=== PATIENT | female | born 1965 | race African-American/Black ===

== ENCOUNTER 2025-04-25 13:09 | Outpatient (REF) | payer OTHER, SELFPAY ==
--- NOTE | ~2025-04-25 | XR_ITS ---
EXAMINATION: XR KNEE, RIGHT CLINICAL INFORMATION: M25.561 - Pain in right knee COMPARISON: None available. TECHNIQUE: Three views of the right knee. FINDINGS: There is moderate narrowing of the medial joint space with medial joint line marginal osteophytes. There is a joint effusion. No other abnormalities are evident. XR/XR knee RT 3V IMPRESSION: Moderate osteoarthritis. Electronically signed by: Asaf Devine MD 04/25/2025 01:34 PM EDT
== END 2025-04-25 13:10 | disposition home or self-care (01) ==
LOC: HO.HOSX 13:09
PROVIDERS: PCP Internal Medicine; Visit Provider Orthopaedic Surgery
DX: M17.11 Unilateral primary osteoarthritis, right knee (principal); Z96.652 Presence of left artificial knee joint
CPT/HCPCS: 73562

== ENCOUNTER 2025-04-25 13:09 | Outpatient (AMB) | payer OTHER, SELFPAY ==
--- NOTE | 2025-04-25 13:35 | MHC.OFFVIS ---
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 The patient did undergo left total knee replacement surgery by Dr. Wu in 2019. She reports mild intermittent discomfort in her left knee. She describes her right knee pain as sharp and severe in nature. Her right knee pain has gotten worse over the last few years in spite of continued non operative treatments. She has had cortisone injections in the past which gave her no relief. She has also had viscosupplementation injections which gave her fairly good relief. She has failed the last 3 months of conservative treatment which has included Tylenol, ibuprofen, physical therapy exercises and a home exercise program. She wishes to hold off on right total knee replacement surgery for as long as possible. At this point her right knee pain is interfering with her activities of daily living and her ability to sleep well through the night. Allergies grape (GRAPE) Allergy (Severe, Verified 04/25/25 13:43) ANAPHYLAXIS oxycodone (OXYCODONE) Allergy (Severe, Verified 04/25/25 13:43) LIPS/FACE SWELLING peanut (PEANUT) Allergy (Severe, Verified 04/25/25 13:43) ANAPHYLAXIS pineapple (PINEAPPLE) Allergy (Severe, Verified 04/25/25 13:43) ANAPHYLAXIS amoxicillin (AMOXICILLIN) Allergy (Intermediate, Verified 04/25/25 13:43) LIP/FACE SWELLING metronidazole (From FLAGYL) Allergy (Intermediate, Verified 04/25/25 13:43) LIP/FACE SWELLING morphine (MORPHINE) Allergy (Intermediate, Verified 04/25/25 13:43) LIP/FACE SWELLING Sulfa (Sulfonamide Antibiotics) (SULFA (SULFONAMIDE ANTIBIOTICS)) Allergy (Intermediate, Verified 04/25/25 13:43) LIP/FACE SWELLING acetaminophen (Percocet) Allergy (Unknown, Verified 04/25/25 13:43) Unknown sulfur Allergy (Unknown, Verified 04/25/25 13:43) Unknown Medication List - Last Reconciled 04/25/25 by Kush Schofield MD clindamycin HCl 300 mg PO ONCE 1 day Physical Exam Vital Signs: BMI result Body Mass Index 36.0 Const Other: Well-nourished well-developed very friendly female awake alert and oriented x3 in no acute distress Extrem Other: Right knee examination shows a minimal effusion, palpable crepitus with range of motion, pain with range of motion, no instability Results Reviewed Results Reviewed: X-rays of the patient's right knee show moderate diffuse joint space narrowing, subchondral sclerosis, no acute bony abnormalities Assessment & Plan Assessment & Plan (1) Osteoarthritis of right knee: Code(s): M17.11 - Unilateral primary osteoarthritis, right knee Category: Medical Plan Ms. Mayes presents with right knee pain due to osteoarthritis. I had a lengthy discussion with the patient regarding the treatment options. She wishes to hold off on total knee replacement surgery for as long as possible. I agree with this plan. I will see if the patient's insurance company will cover a viscosupplementation injection, such as Durolane, for her right knee. I will see her back once the injection is approved. Feel free to call me at any time should questions regarding her orthopedic management arise. Thank you very much for asking me to see this very friendly patient. I spent 21 minutes in reviewing the patient's records and imaging studies, seeing the patient and documenting in the medical record. Orders: Orders XR knee RT 3V Today M25.561 - Pain in right knee Medications: New diclofenac sodium 75 mg PO Q12H PRN 60 tabs 2RF pain Coding Level of Care Code Est Pt Level 3 (03867) Complex EM visit Add On G2211 Diagnoses Osteoarthritis of right knee M17.11
[2025-04-25 13:42] VITALS: BMI 36.0
== END 2025-04-25 14:02 | disposition home or self-care (01) ==
LOC: HO.HOS 13:10
PROVIDERS: PCP Internal Medicine; Visit Provider Orthopaedic Surgery
DX: M17.11 Unilateral primary osteoarthritis, right knee (principal)
CPT/HCPCS: 99213; G2211

== ENCOUNTER → 2025-04-25 13:21 | Outpatient (BNV) | payer OTHER, SELFPAY | PROVIDERS: PCP Internal Medicine; Visit Provider Radiology Diagnostic Radiology | DX: M17.11 Unilateral primary osteoarthritis, right knee (principal) | CPT/HCPCS: 73562 ==

== ENCOUNTER 2025-05-14 14:41 | Outpatient (AMB) | payer OTHER, SELFPAY ==
--- OUTSIDE RECORDS SUMMARY | 2024-08-29 05:30 | XMS_ITS ---
Author Organization [facility] [address] Address [address] [place] [address] Care Team Providers Care Sueding And Buffing Machine Operator Name Role Phone TRAVIS SMILEY [phone] Encounters Encounter Location Date Provider Diagnosis [facility] [address] [address] 08/29/2024 TRAVIS SMILEY Plan Of Treatment No Information Progress Notes * Sherrell MAYESDOB: 6 (59 yo F)Acc No.[id number]:08/29/2024 Progress Notes Patient: Sherrell GOMEZ Provider: Mayte SMILEY :1965 A ge:59 Y S ex:Female Date:08/29/2024 Address:[address] [place], [place] [id number] Subjective: * Chief Complaints: * * Medical History: Objective: * Vitals: Assessment: Plan: * Treatment: * Images: Billing Information: * Visit Code: * Procedure Codes: * Electronic signature of TALAT SMILEY PA-C, [id number] on 05/14/2025 at 06:10 PM EDT Sign off status: Pending * Provider: Mayte SMILEY Date: 0 08/29/2024 Generated for Tere phillips/Natasha/Milind on: 1 06:10 PM EDT
--- OUTSIDE RECORDS SUMMARY | 2025-04-12 05:30 | XMS_ITS ---
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 Encounters Encounter Location Date Provider Diagnosis [facility] [address] [address] 04/12/2025 MERARY NEVAREZ Encounter for gynecological examination (general) (routine) without abnormal findings Z01.419 ; Encounter for screening mammogram for malignant neoplasm of breast Z12.31 and Encounter for screening for infections with a predominantly sexual mode of transmission Z11.3 Assessments Encounter Date Diagnosis (ICD Code) Assessment Notes Treatment Notes Treatment Clinical Notes Section Notes 04/12/2025 Encounter for gynecological examination (general) (routine) without abnormal findings (ICD-10 - Z01.419) During the visit, the following areas of concern were addressed: Discussed cervical cancer screening with either cytology alone every 3 years or high risk HPV co-testing every 5 years as per ASCCP guidelines. Advised continued annual pelvic exams. Patient encouraged to increase her level of exercise. SBE technique encouraged/tau ght. Patient reminded when annual mammogram is due. Patient encouraged to keep colon screening up to date. 04/12/2025 Encounter for screening mammogram for malignant neoplasm of breast (ICD-10 - Z12.31) 04/12/2025 Encounter for screening for infections with a predominantly sexual mode of transmission (ICD-10 - Z11.3) Plan Of Treatment Treatment Notes Assessment Notes Encounter for gynecological examination (general) (routine) without abnormal findings During the visit, the following areas of concern were addressed: Discussed cervical cancer screening with either cytology alone every 3 years or high risk HPV co-testing every 5 years as per ASCCP guidelines. Advised continued annual pelvic exams. Patient encouraged to increase her level of exercise. SBE technique encouraged/taught. Patient reminded when annual mammogram is due. Patient encouraged to keep colon screening up to date. Pending Test Test Name Order Date MM Digital Screening Mammogram 3D 2024 Next Appt Details Follow Up: 1 Year, Reason: Y early Microphone Operator Exam Progress Notes * JANETH VALERODOB: 6 (59 yo F)Acc No.[id number]:04/12/2025 PROGRESS NOTES Patient: JANETH GOMEZ Provider: Lyudmila NEVAREZ MD :1965 A ge:59 Y S ex:Female Date:04/12/2025 Address:[address] [place] [address] Pcp:Niall Benitez MD Subjective: * Chief Complaints: * 1 . 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 S he has been in state of good health since her last exam. She has the following concerns: none* She has received the Delver Covid-19 vaccine. R elationship status: * for over 2 year. She feels safe at home. She is sexually active. Sexual partner(s): male. She does not wish to have STI testing. S he does *not report vaginal dryness. She does not have hot flashes/night sweats. T he patient has never had an abnormal pap smear. Her most recent pap smear was 04/13/24 - NIL, neg HR HPV. Next due for cotesting in 2028. S he has not been diagnosed with breast cancer. She does *not have a family history of breast cancer. Her last mammogram was *February 2024 at [facility] - normal per patient. S he does *not have a family history of colon cancer. She a has not yet had a colonoscopy. Discussed alternative preps and encouraged patient to schedule. 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 * ROS: A nnual Microphone Operator Exam ROS: Bowel habit changes d enies. B ladder symptoms d enies. V aginal discharge, unusual d enies. V aginal itch or odor d enies. w eight or appetite changes d enies. C hest pains, SOB d enies. d epression d enies.? B reast: Denies B reast lump. D enies N ipple discharge.? H ematology: Denies S wollen glands. S kin: Patient denies c hanging moles. P sychiatric: Denies A nxiety. * Medical History: Objective: * Vitals: * Examination: G eneral Examination: GENERAL APPEARANCE: i n no acute distress, well developed, well nourished, wirer helper present in room. HEAD: n ormocephalic, atraumatic. NECK/THYROID: n susan supple, full range of motion, thyroid normal. LYMPH NODES: n o axillary or supraclavicular adenopathy.? SKIN: normal, good turgor, no rashes, no suspicious lesions. BREASTS: normal, no dimpling, no discharge, no drainage, no masses palpable bilaterally, nontender. ABDOMEN: soft, non-tender, non distended without masses or hepatosplenomegay. RECTAL: normal tone, no masses palpable. BACK: no costovertebral angle tenderness. FEMALE GENITOURINARY: V ulva without lesions or masses, vagina pink without abnormal discharge, lesions or masses, cervix appears normal and is not tender to palpation, uterus is normal size, mobile, nontender and anteverted, ovaries are not palpable. NEUROLOGIC: alert and oriented, gait normal. PSYCH: alert, oriented, cognitive function intact, cooperative with exam, good eye contact, mood/affect full range, speech clear. Assessment: * Assessment: 1. E ncounter for gynecological examination (general) (routine) without abnormal findings - Z01.419 (Primary) 2 . E ncounter for screening mammogram for malignant neoplasm of breast - Z12.31 3 . E ncounter for screening for infections with a predominantly sexual mode of transmission - Z11.3 Plan: * Treatment: 2. E ncounter for screening mammogram for malignant neoplasm of breast I maging: MM Digital Screening Mammogram 3D * Follow Up: 1 Year (Reason: Yearly Microphone Operator Exam) * Images: Billing Information: * Visit Code: 22013 Preventive Care Est Pt. Age 40-64. 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 She has been in state of good health since her last exam. She has the following concerns: none* She has received the Delver Covid-19 vaccine. Relationship status: * for over 2 year. She feels safe at home. She is sexually active. Sexual partner(s): male. She does not wish to have STI testing. She does *not report vaginal dryness. She does not have hot flashes/night sweats. The patient has never had an abnormal pap smear. Her most recent pap smear was 04/13/24 - NIL, neg HR HPV. Next due for cotesting in 2028. She has not been diagnosed with breast cancer. She does *not have a family history of breast cancer. Her last mammogram was *February 2024 at [facility] per patient. She does *not have a family history of colon cancer. She a has not yet had a colonoscopy. Discussed alternative preps and encouraged patient to schedule. 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 Examination Category Sub-Category Detail Notes Category Not es General Examination GENERAL APPEARANCE: in no ac three affiliated distress, well developed, well nourished, wirer helper present in room HEAD: normocephalic, atrau matic NECK/THYROID: neck supple, full ra nge of motion, thyroid normal ABDOMEN: soft, non-tender, no n distended without masses or hepatosplenomegay NEUROLOGIC: alert and oriented, gait normal SKIN: normal, good turgor, no rashes, no suspicious lesions BACK: no costovertebral an gle tenderness BREASTS: normal, no dimpling, no discharge, no drainage, no masses palpable bilaterally, nontender LYMPH NODES: no axillary or supra clavicular adenopathy RECTAL: normal tone, no mass es palpable PSYCH: alert, oriented, cog nitive function intact, cooperative with exam, good eye contact, mood/affect full range, speech clear FEMALE GENITOURINARY: Vulva without lesi ons or masses, vagina pink without abnormal discharge, lesions or masses, cervix appears normal and is not tender to palpation, uterus is normal size, mobile, nontender and anteverted, ovaries are not palpable
--- NOTE | 2025-05-14 14:44 | A.OFFVIS_ITS ---
Intake Visit Reasons: Right Knee Gel-One Intake Note: Sherrell is a 59 year old female who presents with complaints of progressively worsening right knee pain. The patient did undergo left total knee replacement surgery by Dr. Wu in 2019. She reports mild intermittent discomfort in her left knee. She describes her right knee pain as sharp and severe in nature. Her right knee pain has gotten worse over the last few years in spite of continued non operative treatments. She has had cortisone injections in the past which gave her no relief. She has also had viscosupplementation injections which gave her fairly good relief. She has failed the last 3 months of conservative treatment which has included Tylenol, ibuprofen, physical therapy exercises and a home exercise program. She wishes to hold off on right total knee replacement surgery for as long as possible. At this point her right knee pain is interfering with her activities of daily living and her ability to sleep well through the night. Allergies grape (GRAPE) Allergy (Severe, Verified 05/14/25 14:44) ANAPHYLAXIS oxycodone (OXYCODONE) Allergy (Severe, Verified 05/14/25 14:44) LIPS/FACE SWELLING peanut (PEANUT) Allergy (Severe, Verified 05/14/25 14:44) ANAPHYLAXIS pineapple (PINEAPPLE) Allergy (Severe, Verified 05/14/25 14:44) ANAPHYLAXIS amoxicillin (AMOXICILLIN) Allergy (Intermediate, Verified 05/14/25 14:44) LIP/FACE SWELLING metronidazole (From FLAGYL) Allergy (Intermediate, Verified 05/14/25 14:44) LIP/FACE SWELLING morphine (MORPHINE) Allergy (Intermediate, Verified 05/14/25 14:44) LIP/FACE SWELLING Sulfa (Sulfonamide Antibiotics) (SULFA (SULFONAMIDE ANTIBIOTICS)) Allergy (Intermediate, Verified 05/14/25 14:44) LIP/FACE SWELLING acetaminophen (Percocet) Allergy (Unknown, Verified 05/14/25 14:44) Unknown sulfur Allergy (Unknown, Verified 05/14/25 14:44) Unknown Medication List - Last Reconciled 05/14/25 by Kush Schofield MD clindamycin HCl 300 mg PO ONCE 1 day diclofenac sodium 75 mg PO Q12H PRN PFSH Social History (Updated 05/14/25 @ 14:47 by ERIC Gordon) Alcohol intake: never Patient Tobacco Use Status: Never used Tobacco Current occupational status: employed 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 Physical Exam Extrem Other: Right knee examination shows a minimal effusion, palpable crepitus with range of motion, pain with range of motion, no instability Office Procedures AMB Joint Injection/Aspiration Joint Injection/Aspiration Primary Site: right knee Prep: site was prepped using aseptic technique Injected: with 4 mL of, 1% plain lidocaine and other (3 mL of Gel One viscosupplementation) Procedure: The patient tolerated the procedure well Coding - Large joint Procedure code (CPT) selection complete Results Reviewed Results Reviewed: X-rays of the patient's right knee taken previously show joint space narrowing, subchondral sclerosis, no acute bony abnormalities Assessment & Plan Assessment & Plan (1) Osteoarthritis of right knee: Code(s): M17.11 - Unilateral primary osteoarthritis, right knee Category: Medical Plan Ms. Mayes presents with right knee pain due to osteoarthritis. The risks and benefits of a right knee Gel One viscosupplementation injection were discussed at length with the patient. The patient wished to proceed. She tolerated the injection well. She will continue with her activity modifications. She will contact me prior to her follow-up appointment in 3 months should any questions or concerns arise. Feel free to call me at any time should questions regarding her orthopedic management arise. I spent 21 minutes in reviewing the patient's records and imaging studies, seeing the patient and documenting in the medical record. Orders: Orders AMB Joint Injection/Aspiration Today M17.11 - Unilateral primary osteoarthritis, right knee Coding Level of Care Code Est Pt Level 3 (80308) Complex EM visit Add On G2211 Diagnoses Osteoarthritis of right knee M17.11 CPT Codes Coding - Large joint: 46418 - Large joint ([id number])
--- OUTSIDE RECORDS SUMMARY | 2025-05-14 18:10 | XMS_ITS | Patient Health Record ---
Author Organization [employer] [facility] Address [address] [address] Care Team Providers Care Fibre Technologist Name Role Phone Niall Benitez MD Primary Care Provider MERARY Gonsalez Unavailable [phone] Allergies Allergen (clinical drug ingredient) Drug/Non Drug Allergy documented on EMR Reaction Allergy Type Onset Date Status amoxicillin Amoxicillin swelling Drug Allergy Act hellen atropine / hyoscyamine / phenobarbital / scopolamine swelling Drug Allergy Active Metro swelling Drug Allergy Active acetaminophen / oxycodone Percocet swelling Drug Allergy Active Reason For Referral No Information Medications Medication SIG (Take, Route, Frequency, Duration) Notes Start Date End Date Status Atorvastatin Calcium 10 MG 1 tablet Oral ly Once a day Active Social History Tobacco Use: Social History Observation Description Date Details (start date - stop date) Never Smoker NA - NA Tobacco Use/Smoking Question Answer Notes Are you a nonsmoker AUDIT-C (Standard) Question Answer Notes Did you have a drink contain ing alcohol in the past year? Yes How often did you have six o r more drinks on one occasion in the past year? Never (0 point) How many drinks did you have on a typical day when you were drinking in the past year? 1 or 2 drinks (0 point) How often did you have a dri nk containing alcohol in the past year? Monthly or less (1 point) Points 1 Interpretation Negative Problems Problem Type SNOMED Code ICD Code Onset Dates Problem Status W/U Status Risk Notes Problem Hyperlipidemia (33933042) Hyperlipidemia, unspecified (E78.5) Active confirmed Problem Elevated blood pressure reading without diagnosis of hypertension (599959460) Elevated blood-pressure reading, without diagnosis of hypertension (R03.0) Active confirmed Plan Of Treatment Pending Test Test Name Order Date MM Digital Screening Mammogram 3D 2019 MM Digital Screening Mammogram 3D 2020 MM Digital Screening Mammogram 3D 2023 Insurance Providers Payer Name Payer Address Payer Phone Subscriber Number Group Number Insured Name Patient Relationship to Insured Coverage Start Date Coverage End Date [facility] [address] [place] [address] [id number] JANETH VALERO Self - patient is the insured 3 Medical (General) History Medical History History ICD Code Other specified arthritis, unspecified s ite M13.80 COVID-19 U07.1 Hyperlipidemia, unspecified E78.5 Surgical History Surgery Date(Month/Year) knee surgery - left replacement 03/28/19 lap band surgery 04/2015 Hand surgery 06/2018 Tubal ligation 08/1992 Hospitalization History Reason Date(Month/Year) See surgical history (knee and lap band required hospital stays)
--- OUTSIDE RECORDS SUMMARY | 2025-05-14 18:10 | XMS_ITS | Patient Health Record ---
Author Organization [facility] Address [address] [place] [address] Care Team Providers Care Appellate Court Clerk Name Role Phone TRAVIS SMILEY Unavailable [phone] Reason For Referral No Information Plan Of Treatment No Information Insurance Providers Payer Name Payer Address Payer Phone Subscriber Number Group Number Insured Name Patient Relationship to Insured Coverage Start Date Coverage End Date [facility] [address] [place] [address] [id number] Sherrell Mayes Self - patient is the insured
--- OUTSIDE RECORDS SUMMARY | 2025-05-14 18:10 | XMS_ITS | Encounter Summary ---
Author Organization [facility] Address [address] [place] [address] Care Team Providers Care Chemical Blender Name Role Phone Niall Benitez MD Primary Care Provider [phone] Reason for Visit * Reason Comments Medication Refill Encounter Details Date Type Department Care Team (Late st Contact Info) Description 05/22/2020 Refill [facility] [address] [place] [address] Krista Mathew MD [address] [address] Abnormal craving Social History Tobacco Use Types Packs/Day Years Used Date Smoking Tobacco: Never Smokeless Tobacco: Never Alcohol Use Standard Drinks/Week Comments Not Currently 0 (1 standard drink = 0.6 oz pur e alcohol) Comments No Sex and Gender Information Value Date Recorded Sex Assigned at Not on file Legal Sex Female 11:20 AM EDT Gender Identity Not on file Sexual Orientation Not on file documented as of this encounter Plan of Treatment Not on file documented as of this encounter Visit Diagnoses Diagnosis Abnormal craving Pica documented in this encounter Care Teams Chemical Blender Relationship Specialty Start Date End Date Niall Benitez MD [address] [place] [id number] PCP - General 02/16/19 documented as of this encounter
--- OUTSIDE RECORDS SUMMARY | 2025-05-14 18:10 | XMS_ITS | Clinical Summary ---
Author Organization [facility] Address [address] [place] [address] Care Team Providers Care Fiberglass Bonding Machine Tender Name Role Phone Stanley Almaraz MD Primary Care Provider [phone] Social History Tobacco Use Types Packs/Day Years Used Date Smoking Tobacco: Never Assessed Sex and Gender Information Value Date Recorded Sex Assigned at Not on file Gender Identity Not on file Sexual Orientation Not on file Plan of Treatment Health Maintenance Due Date Last Done Comments Hepatitis B Vaccines (1 of 3 - 3-dose series) 1965 Hepatitis C Screening 1965 COVID-19 Vaccine (#1) 02/14/1966 Depression Screening 1977 Preventative Health Evaluation 1983 DTap / Tdap / Td (1 - Tdap) 1984 Cervical Cancer Screening (P ap Smear) 1986 Colon Cancer Screening (Colonoscopy) 2010 Breast Cancer Screening (Mammogram) 2015 Shingrix-Zoster Vaccine (1 of 2) 2015 Influenza Vaccine (#1) 2025 Pneumococcal Vaccine Aged Out No long er eligible based on patient's age to complete this topic RSV Ped < 20 months Aged Out No longe r eligible based on patient's age to complete this topic Care Teams Fiberglass Bonding Machine Tender Relationship Specialty Start Date End Date Stanley Almaraz MD [address] [place] [address] PCP - General Internal Medicine 04/24/15
--- OUTSIDE RECORDS SUMMARY | 2025-05-14 18:10 | XMS_ITS ---
Author Name [facility] Organization Unknown Encounters Encounter Type Encounter Reason Primary Diagnosis Location Date Ambulatory Obesity, unspecified [facility] 04/22/2021 Care Team Organization Name Specialty Phone Email Start Date End Da te [facility] JUSTYNA PINK Primary Care 04/23/2021 03/06/2024 [facility] JUSTYNA PINK Primary Care 04/22/2021 04/22/2021
--- OUTSIDE RECORDS SUMMARY | 2025-05-14 18:10 | XMS_ITS | Clinical Summary ---
Author Organization [employer] Address [address] [place] [address] 7 [place] [address] Care Team Providers Care Smoking Tobacco Packing Machine Hand Name Role Phone Unavailable Primary Care Provider Unavailabl e Immunizations Immunization Administration Dates Next Due Pfizer Covid-19 Vaccine 12+ 07/06/2023 Pneumococcal Polysaccharide PPSV23 11/06/2005 Social History Tobacco Use Types Packs/Day Years Used Date Smoking Tobacco: Never Assessed Comments Unknown Sex and Gender Information Value Date Recorded Sex Assigned at Female 07/06/2023 4:20 PM EST Legal Sex Female 4:18 PM EST Gender Identity Female 07/06/2023 4:20 PM EST Sexual Orientation Straight 07/06/2023 4: 20 PM EST Plan of Treatment Health Maintenance Due Date Last Done Comments CT Colonography 1965 Colonoscopy 1965 Colorectal Cancer Screening 1965 Depression Screening 1965 FIT DNA/Cologuard 1965 FIT 1965 FOBT 1965 HIV Screening 1965 SDOH Screening 1965 Sigmoidoscopy 1965 Disability Screening 1965 Alcohol/Substance Use Screening 1977 Tobacco Screening 1977 Hepatitis C Screening 1983 DTaP/Tdap/Td Vaccines (1 - Tdap) 1984 Hepatitis B Vaccines (1 of 3 - 19+ 3-dose series) 1984 Pap Smear 1986 Cervical Cancer Screening 1995 HPV/Cotest 1995 Mammogram 2005 Pneumococcal Vaccine: 50+ Ye ars (2 of 2 - PCV) 2015 11/06/2005 Zoster Vaccines (1 of 2) 2015 COVID-19 Vaccine (2 - 2024-2 6 season) 2025 07/06/2023 Influenza Vaccine (#1) 2025 RSV Patients and Pa tients Aged 60 years or older (1 - 1-dose 75+ series) 2040 HIB Vaccines Aged Out No longer eligi ble based on patient's age to complete this topic HPV Vaccines Aged Out No longer eligi ble based on patient's age to complete this topic Hepatitis A Vaccines Aged Out No long er eligible based on patient's age to complete this topic IPV Vaccines Aged Out No longer eligi ble based on patient's age to complete this topic Meningococcal B Vaccine Aged Out No l onger eligible based on patient's age to complete this topic Meningococcal Vaccine Aged Out No bishop berny eligible based on patient's age to complete this topic RSV under 20 months Aged Out No longe r eligible based on patient's age to complete this topic Rotavirus Vaccines Aged Out No longer eligible based on patient's age to complete this topic Insurance , [address] [place] [id number]
--- OUTSIDE RECORDS SUMMARY | 2025-05-14 18:10 | XMS_ITS | Encounter Summary ---
Author Organization [facility] Address [address] [place] [address] Care Team Providers Care Bone Worker Name Role Phone Stanley Almaraz MD Primary Care Provider [phone] Niall Benitez MD Primary Care Provider [phone] Encounter Details Date Type Department Care Team (Late st Contact Info) Description 09/28/2014 Scanned Document [address] [phone] Provider, Generic Social History Tobacco Use Types Packs/Day Years Used Date Smoking Tobacco: Never Assessed Comments Unknown Sex and Gender Information Value Date Recorded Sex Assigned at Not on file Legal Sex Female 11:20 AM EDT Gender Identity Not on file Sexual Orientation Not on file documented as of this encounter Plan of Treatment Not on file documented as of this encounter Visit Diagnoses Not on filedocumented in this encounter Care Teams Bone Worker Relationship Specialty Start Date End Date Stanley Almaraz MD PCP - General 11/04/15 02/15/19 Niall Benitez MD [address] [place] [id number] PCP - General 02/16/19 documented as of this encounter
--- OUTSIDE RECORDS SUMMARY | 2025-05-14 18:10 | XMS_ITS | Clinical Summary ---
Author Organization [address] [place] [address] [place] [phone] Phone Care Team Providers Care Phone Operator Name Role Phone Justyna Benitez MD Primary Care Provider [phone] Allergies Active Allergy Reactions Criticality Noted Date Comments Amoxicillin 06/30/2024 Morphine 06/30/2024 Oxycodone-Acetaminophen 06/30/2024 Sulfa Dyne 06/30/2024 Medications No known medications Active Problems Problem Noted Date Diagnosed Date Chest pain 07/12/2024 Tachycardia 06/28/2024 Social History Tobacco Use Types Packs/Day Years Used Date Smoking Tobacco: Never Smokeless Tobacco: Never Tobacco Cessation:Counseling Given: Not Answered Alcohol Use Standard Drinks/Week Comments Yes 0 (1 standard drink = 0.6 oz pur e alcohol) occ Comments Unknown Sex and Gender Information Value Date Recorded Sex Assigned at Not on file Legal Sex Female 11:28 AM EST Gender Identity Not on file Sexual Orientation Not on file Obstetrics History Last Filed Vital Signs Vital Sign Reading Time Taken Comments Blood Pressure 118/82 06/30/2024 8:29 AM EST Pulse 75 06/30/2024 8:29 AM EST Temperature - - Respiratory Rate - - Oxygen Saturation 99% 06/30/2024 8:29 AM EST Inhaled Oxygen Concentration - - Weight 110 kg (243 lb) 06/30/2024 8:29 AM EST Height 162.6 cm (5' 4 ) 06/30/2024 8:29 AM EST Body Mass Index 41.71 06/30/2024 8:29 AM EST Plan of Treatment Health Maintenance Due Date Last Done Comments Colorectal Cancer Screening: Colonoscopy 1965 DTaP,Tdap,and Td Vaccines (1 - Tdap) 1984 Hepatitis B Vaccines (1 of 3 - 19+ 3-dose series) 1984 Cervical Cancer Screening: P ap Smear 1986 Pneumococcal Vaccine: 50+ Years (2 of 2 - PCV) 2015 11/06/2005 RSV Immunization Adult Patients (1 - Risk 50-74 years 1-dose series) 2015 Zoster Vaccines (1 of 2) 2015 HIV Screening 06/16/2022 Hepatitis C Screening 06/16/2022 Social Influencers of Health Screening 06/16/2022 Depression Screening 07/19/2024 COVID-19 Vaccine (2 - 2024-2 6 season) 2025 07/06/2023 Influenza Vaccine (#1) 2025 Breast Cancer Screening 02/22/2026 02/23/20 24, 08/13/2020, 07/31/2019 Cholesterol Screening (Lipid Panel) 05/30/2029 05/30/2024 HIB Vaccines Aged Out No longer eligi [...] on patient's age to complete this topic MMR Vaccines Aged Out No longer eligi ble based on patient's age to complete this topic Meningococcal ACWY Vaccine Aged Out N o longer eligible based on patient's age to complete this topic Meningococcal B Vaccine Aged Out No l onger eligible based on patient's age to complete this topic RSV Immunization Patients Under 20 months Aged Out No longer eligible b ased on patient's age to complete this topic Varicella Vaccines Aged Out No longer eligible based on patient's age to complete this topic Procedures Procedure Name Priority Date/Time Associated Diagnosis Comments LIPID PANEL WITH REFLEX TO DIRECT LDL Routine 05/30/2024 8:06 AM EST Encounter for screening for other metabolic disorders JIN SCREENING DIGITAL Routine 02/23/2024 1:53 PM EDT Encounter for screening mammogram for malignant neoplasm of breast from Last 3 Months or Most Recently Relevant to Health Maintenance Results * (ABNORMAL) Lipid panel with reflex to direct LDL (05/30/2024 8:06 AM EST) Cholesterol 252(H) 0 - 200 mg/dL LAB CHEMISTRY METHOD 05/30/2024 10:27 AM EST [facility] Triglycerides 93 0 - 150 mg/dL LAB CHEMISTRY METHOD 05/30/2024 10:27 AM EST [facility] HDL 65 >=40 mg/dL LAB CHEMISTRY METHOD 05/30/2024 10:27 AM [facility] LDL Calculated 168(H) 0 - 100 mg/dL LAB CHEMISTRY METHOD 05/30/2024 10:27 AM [facility] VLDL Cholesterol Kev 18.6 mg/dL LAB CHEMISTRY METHOD 05/30/2024 10:27 AM EST [facility] Non HDL Chol. (LDL+VLDL) 187(H) <145 mg/dL LAB CHEMISTRY METHOD 05/30/2024 10:27 AM EST [facility] Chol/HDL Ratio 3.9 0.0 - 4.4 LAB CHEMISTRY METHOD 05/30/2024 10:27 AM [facility] Blood Venous blood specimen / Unknown Venipuncture / Unknown 05/30/2024 8:06 AM EST 05/30/2024 8:06 AM EST Viet Juarezley LAB BLOOD ORDERABLES Fi nal Result [facility] [address] [place] [address], * JIN SCREENING DIGITAL (02/23/2024 1:53 PM EDT) Anatomical Region Laterality Modality Mammography 02/23/2024 9:05 AM EDT Narrative 02/23/2024 1:53 PM EDT [facility] Diagnostic Imaging Department [address] [place] [id number] Patient: ANJUMJANETH./Age/Sex: 1965 - 58 - F Unit#: [id number] Location/Status: SPDIMAM/REG CLI Mnemonic/Ordering Site: [facility] Ordering Physician: JUSTYNA BENITEZ MD [facility] Screening Digital - 02/23/24 - 922 Report Status:Signed EXAM: [facility] Screening Digital EXAM DATE AND TIME: 02/23/2024 9:24 AM HISTORY: Screening. COMPARISON: 02/11/21, 08/20/20, 08/13/20, 07/31/19, 12/03/16 TECHNIQUE: Bilateral digital breast tomosynthesis was performed in the CC and MLO projections. Computer aided detection with FullStory 3D 3.1 was employed. TISSUE DENSITY: b. There are scattered areas of fibroglandular density. FINDINGS: No suspicious masses, grouped microcalcifications, or areas of architectural distortion are seen. A small asymmetry in the left CC view reported previously and followed is less conspicuous now, slightly smaller in size, consistent with a benign process. Vascular calcification is present. The skin is unremarkable. IMPRESSION: No mammographic evidence of malignancy is seen. No significant change. A negative mammogram in the presence of a clinically suspicious palpable abnormality does not preclude the possibility of malignancy or alter the indications for biopsy. BI-RADS: Category 2: Benign RECOMMENDATION(S): 1: Routine screening mammogram BILATERAL in 1 year. Dictating Physician: MERLY VITALE MD Electronically Signed by: MERLY VITALE MD Dic Date/Time: 02/23/24 1351 Sign date/Time: 02/23/24 1353 Procedure Note Merly Vitale MD - 05/03/2024 [facility] Diagnostic Imaging Department [address] [place] [id number] Patient: JANETH MAYES /Age/Sex: 1965 - 58 - F Unit#: [id number] [facility] Mn[facility]onic/Ordering Site: [facility] Ordering Physician: JUSTYNA BENITEZ MD [facility] Screening Digital - 02/23/24 - 922 Report Status:Signed EXAM: [facility] Screening Digital EXAM DATE AND TIME: 02/23/2024 9:24 AM HISTORY: Screening. COMPARISON: 02/11/21, 08/20/20, 08/13/20, 07/31/19, 12/03/16 TECHNIQUE: Bilateral digital breast tomosynthesis was performed in the CCand MLO projections. Computer aided detection with FullStory 3D 3.1was employed. TISSUE DENSITY: b. There are scattered areas of fibroglandular density. FINDINGS: No suspicious masses, grouped microcalcifications, or areas ofarchitectural distortion are seen. A small asymmetry in the left CC view reportedpreviously and followed is less conspicuous now, slightly smaller in size, consistentwith a benign process. Vascular calcification is present. The skin is unremarkable. IMPRESSION: No mammographic evidence of malignancy is seen. No significant change. A negative mammogram in the presence of a clinically suspicious palpable abnormality does not preclude the possibility of malignancy or alter the indications for biopsy. BI-RADS: Category 2: Benign RECOMMENDATION(S): 1: Routine screening mammogram BILATERAL in 1 year. Dictating Physician: MERLY VITALE MD Electronically Signed by: MERLY VITALE MD Dic Date/Time: 02/23/24 1351 Sign date/Time: 02/23/24 1353 Justyna Benitez MD IMG BI PROCEDURES Final Result from Last 3 Months or Most Recently Relevant to Health Maintenance Insurance [facility] Care Teams Phone Operator Relationship Specialty Start Date End Date Justyna Benitez MD [address] [place] [id number] PCP - General 02/05/23
--- OUTSIDE RECORDS SUMMARY | 2025-05-14 18:11 | XMS_ITS | Encounter Summary ---
Author Organization [facility] Address [address] [place] [address] Care Team Providers Care Street Light Lamp Cleaner Name Role Phone Stanley Almaraz MD Primary Care Provider [phone] Niall Benitez MD Primary Care Provider [phone] Encounter Details Date Type Department Care Team (Late st Contact Info) Description 01/15/2017 Scanned Document [facility] Bariatric Surgery [address] [place] [address] Arturo Bacon MD [address] [place] [address] Social History Tobacco Use Types Packs/Day Years Used Date Smoking Tobacco: Never Smokeless Tobacco: Never Alcohol Use Standard Drinks/Week Comments Yes 2 (1 standard drink = 0.6 oz pur e alcohol) socially. Comments Unknown Sex and Gender Information Value Date Recorded Sex Assigned at Not on file Legal Sex Female 11:20 AM EDT Gender Identity Not on file Sexual Orientation Not on file documented as of this encounter Plan of Treatment Not on file documented as of this encounter Visit Diagnoses Not on filedocumented in this encounter Care Teams Street Light Lamp Cleaner Relationship Specialty Start Date End Date Stanley Almaraz MD PCP - General 11/04/15 02/15/19 Niall Benitez MD [address] [place] [phone] PCP - General 02/16/19 documented as of this encounter
--- OUTSIDE RECORDS SUMMARY | 2025-05-14 18:11 | XMS_ITS | Encounter Summary ---
Author Organization [facility] Address [address] [place] [address] Care Team Providers Care Senior Service Technician Name Role Phone Stanley Almaraz MD Primary Care Provider [phone] Niall Benitez MD Primary Care Provider [phone] Encounter Details Date Type Department Care Team (Late st Contact Info) Description 11/29/2015 Scanned Document [address] [place] [phone] Provider, Generic Social History Tobacco Use Types [...] on filedocumented in this encounter Care Teams Senior Service Technician Relationship Specialty Start Date End Date Stanley Almaraz MD PCP - General 11/04/15 02/15/19 Niall Benitez MD [address] [place] [phone] PCP - General 02/16/19 documented as of this encounter
--- OUTSIDE RECORDS SUMMARY | 2025-05-14 18:11 | XMS_ITS | Clinical Summary ---
Author Organization [facility] Address [address] [place] [address] Care Team Providers Care Internet Marketing Assistant Name Role Phone Niall Benitez MD Primary Care Provider [phone] Allergies Active Allergy Reactions Criticality Noted Date Comments Amoxicillin Rash/Dermatitis Low 11/20/2015 Metronidazole Swelling Medium 03/14/2019 Latex Rash/Dermatitis Low 11/20/2015 Powder in latex glove Methylprednisolone Rash/Dermatitis Low 11/20/2015 Oxycodone-Acetaminophen Itching Low 11/20/2015 Medications PROAIR HFA 108 (90 BASE) MCG/ACT inhaler 0 6 Active Multiple Vitamins-Minera ls (MULTIVITAMIN WITH MINERALS) Tab tablet Take 1 tablet by mouth daily. Active calcium-vitamin D (OSCAL-500) 500-200 MG-UNIT per tablet Take 1 tablet by mouth 2 (two) times a day. With food. Active ergocalciferol (ERGOCALCIFEROL ) 77481 units capsule Take 50,000 Units by mouth once a week. Active ferrous sulfate 325 (65 FE) MG tabletIndicatio ns:3 times a week Take 325 mg by mouth. Take 2 hours before or 4 hours after acid reducers. Active vitamin B-12 (CYANOCOBALAMIN ) 100 MCG tablet Take by mouth every other day. Active atorvastatin (LIPITOR) 10 MG tablet TAKE 1 TABLET BY MOUTH EVERYDAY AT BEDTIME 0 Active diclofenac enteric coated (VOLTAREN) 75 MG EC tablet TAKE 1 TABLET (75 MG) BY MOUTH 2 TIMES PER DAY NEEDED WITH FOOD 0 Active gabapentin (NEURONTIN) 300 MG capsule Take 300 mg by mouth 2 (two) times a day. 9 Active topiramate (TOPAMAX) 25 MG tabletIndicatio ns:Abnormal craving TAKE 1 TABLET BY MOUTH DAILY, CAN INCREASE TO 2 TABLETS DAILY BASED ON TOLERABILITY IN 1 WEEK 60 tablet 1 0 Active cyanocobalamin (VITAMIN B-12) 1000 MCG tablet Take 1,000 mcg by mouth daily. 1 Active Active Problems Problem Noted Date Diagnosed Date Obesity, Class I, BMI 30-34.9 02/16/2019 Primary osteoarthritis of left knee 02/16/2019 Vitamin D deficiency 02/16/2019 Obesity 11/20/2015 Joint pain 11/20/2015 Bariatric surgery status 11/20/2015 LAP-BAND surgery status 11/20/2015 Resolved Problems Problem Noted Date Diagnosed Date Resolved Date Pulmonary embolism 11/20/2015 6 Family History Medical History Relation Name Comments Diabetes Father Hyperlipidemia Father Hypertension Father Arthritis Mother Obesity Mother Relation Name Status Comments Father Alive Mother Alive Sister Alive Social History Tobacco Use Types Packs/Day Years Used Date Smoking Tobacco: Never Smokeless Tobacco: Never Alcohol Use Standard Drinks/Week Comments Yes 2 (1 standard drink = 0.6 oz pur e alcohol) 2x per mth Comments No Sex and Gender Information Value Date Recorded Sex Assigned at Not on file Legal Sex Female 11:20 AM EDT Gender Identity Not on file Sexual Orientation Not on file Last Filed Vital Signs Vital Sign Reading Time Taken Comments Blood Pressure 120/82 04/22/2021 3:11 PM EDT Pulse 84 04/22/2021 3:11 PM EDT Temperature - - Respiratory Rate 14 06/13/2019 11:11 AM EST Oxygen Saturation 100% 04/22/2021 3:11 PM EDT Inhaled Oxygen Concentration - - Weight 85.3 kg (188 lb) 04/22/2021 3:11 PM EDT Height 162.6 cm (5' 4 ) 04/22/2021 3:11 PM EDT Body Mass Index 32.27 04/22/2021 3:11 PM EDT Plan of Treatment Health Maintenance Due Date Last Done Comments Hepatitis C Virus Screening 1965 HIV Screening 1978 DTaP/Tdap/Td Vaccines (1 - Tdap) 1984 Hepatitis B Vaccines (1 of 3 - 19+ 3-dose series) 07/21 Pap Smear (Ages 21-65) 1986 Mammogram 2005 Colonoscopy 2010 Pneumococcal Vaccines 50+ (1 of 1 - PCV) 2015 Zoster (Shingles) Vaccine (1 of 2) 2015 Influenza Vaccine 02/16/2025 COVID-19 Vaccine (1 - 2023- season) 2025 RSV Vaccine 50 years and old er and Patients (1 - 1-dose 75+ series) 2040 Insurance [facility] Care Teams Internet Marketing Assistant Relationship Specialty Start Date End Date Niall Benitez MD [address] [place] [id number] PCP - General 02/16/19
--- OUTSIDE RECORDS SUMMARY | 2025-05-14 18:11 | XMS_ITS | Encounter Summary ---
Author Organization [facility] Address [address] [place] [address] Care Team Providers Care Accounts Payable Coordinator Name Role Phone Stanley Almaraz MD Primary Care Provider [phone] Niall Benitez MD Primary Care Provider [phone] Encounter Details Date Type Department Care Team (Late st Contact Info) Description 11/27/2015 Scanned Document [address] [place] [phone] Provider, Generic Social History Tobacco Use Types Packs/Day Years Used Date Smoking Tobacco: Never Alcohol Use Standard Drinks/Week Comments Yes 0 (1 standard drink = 0.6 oz pur e alcohol) socially Comments Unknown Sex and Gender Information Value Date Recorded Sex Assigned at Not on file Legal Sex Female 11:20 AM EDT Gender Identity Not on file Sexual Orientation Not on file documented as of this encounter Plan of Treatment Not on file documented as of this encounter Procedures Procedure Name Priority Date/Time Associated Diagnosis Comments IMAGING GASTROINTESTINAL 11/27/2015 documented in this encounter Results * IMAGING GASTROINTESTINAL (11/27/2015) Anatomical Region Laterality Modality Other Narrative 01/12/2017 5:26 AM EDT Ordered by an unspecified provider. us Generic Provider IMG LEGACY PROCEDURES Final Res ult documented in this encounter Visit Diagnoses Not on filedocumented in this encounter Care Teams Accounts Payable Coordinator Relationship Specialty Start Date End Date Stanley Almaraz MD PCP - General 11/04/15 02/15/19 Niall Benitez MD [address] [place] [phone] PCP - General 02/16/19 documented as of this encounter
--- OUTSIDE RECORDS SUMMARY | 2025-05-14 18:11 | XMS_ITS | Encounter Summary ---
Author Organization [facility] Address [address] [place] [address] Care Team Providers Care Pattern Marker Name Role Phone Stanley Almaraz MD Primary Care Provider [phone] Niall Benitez MD Primary Care Provider [phone] Encounter Details Date Type Department Care Team (Late st Contact Info) Description 05/08/2015 Scanned Document [address] [place] [phone] Provider, Generic Social History Tobacco Use Types [...] Procedure Name Priority Date/Time Associated Diagnosis Comments XRAY EXTERNAL RESULT 05/08/2015 documented in this encounter Results * XRAY EXTERNAL RESULT (05/08/2015) Anatomical Region Laterality Modality Computed Radiogr aphy Narrative 01/12/2017 5:26 AM EDT Ordered by an unspecified provider. us Generic Provider IMG DIAGNOSTIC IMAGING ORDERABL ES Final Result documented in this encounter Visit Diagnoses Not on filedocumented in this encounter Care Teams Pattern Marker Relationship Specialty Start Date End Date Stanley Almaraz MD PCP - General 11/04/15 02/15/19 Niall Benitez MD [address] [place], [place] [phone] PCP - General 02/16/19 documented as of this encounter
--- OUTSIDE RECORDS SUMMARY | 2025-05-14 18:11 | XMS_ITS | Encounter Summary ---
Author Organization [facility] Address [address] [place] [address] Care Team Providers Care Integrative Medicine Physician Name Role Phone Stanley Almaraz MD Primary Care Provider [phone] Niall Benitez MD Primary Care Provider [phone] Encounter Details Date Type Department Care Team (Late st Contact Info) Description 01/08/[address] [facility] Bariatric Surgery [address] [place] [address] Arturo Bacon MD [address] [place] [address] Social History Tobacco Use Types Packs/Day Years [...] on filedocumented in this encounter Care Teams Integrative Medicine Physician Relationship Specialty Start Date End Date Stanley Almaraz MD PCP - General 11/04/15 02/15/19 Niall Benitez MD [address] [place] [phone] PCP - General 02/16/19 documented as of this encounter
== END 2025-05-14 15:15 | disposition home or self-care (01) ==
LOC: HO.HOS 14:41
PROVIDERS: PCP Internal Medicine; Visit Provider Orthopaedic Surgery
DX: M17.11 Unilateral primary osteoarthritis, right knee (principal)
CPT/HCPCS: 20610

== ENCOUNTER → 2025-05-14 14:41 | Outpatient (BNVA) | payer OTHER, SELFPAY | PROVIDERS: PCP Internal Medicine; Visit Provider Orthopaedic Surgery | DX: M17.11 Unilateral primary osteoarthritis, right knee (principal) | CPT/HCPCS: 20610; J2003; J7318; J7326 ==